=== PATIENT | female | born 1990 ===

== ENCOUNTER 2017-01-06 09:10 | Emergency (ER) | payer OTHER ==
[2017-01-06 09:23] VITALS: BP 101/66; PULSE 76; RESP 16; TEMP 97.8; O2SAT 98
--- NOTE | 2017-01-06 09:50 | C.PDOC ---
History Of Present Illness 26 y/o female presents to ED with complaints of both ears being clogged with decreased hearing for 5 days. Patient states left ear felt clogged first than right and hears sound distantly. Patient denies ear drainage, runny nose, cough , rash, fever, chills or any other complaints at this time. 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 Constitutional: Negative for: Fever, Chills ENT: Positive for: Ear Pain. Negative for: Ear Discharge, Nose Congestion Respiratory: Negative for: Cough Gastrointestinal: Negative for: Nausea, Vomiting, Diarrhea Skin: Negative for: Rash Physical Exam - Physical Exam Appears: Non-toxic, No Acute Distress Skin: Normal Color, Warm Head: Atraumatic, Normacephalic Eye(s): bilateral: Normal Inspection, PERRL, EOMI Ear(s): Bilateral: Other (Ear canals full of wax) Nose: Normal Oral Mucosa: Moist Throat: Normal, No Erythema Extremity: Normal ROM, Capillary Refill (<2 seconds) Neurological/Psych: Oriented x3 ED Course And Treatment O2 Sat by Pulse Oximetry: 98 (RA) Medical Decision Making Medical Decision Making: Patient was diagnosed with Cerumen Impaction Patient was discharged home and advised to follow up with ENT. Disposition Counseled Patient/Family Regarding: Diagnosis, Need For Followup - Disposition Referrals: [facility] [Outside] Clark Qureshi MD [Staff Provider] - Disposition: HOME/ ROUTINE Disposition Time: 09:49 Condition: STABLE Additional Instructions: Usted tiene cerumen impaction en ambos odos. Use agua oxygenada 3 veces al da en ambos odos. Seguimiento con ENT. Instructions: Cerumen Impaction (ED) - POA Present On Arrival: None - Clinical Impression Clinical Impression: Impacted cerumen - Scribe Statement The provider has reviewed the documentation as recorded by the Scribmarley Allen All medical record entries made by the Scribe were at my direction and personally dictated by me. I have reviewed the chart and agree that the record accurately reflects my personal performance of the history, physical exam, medical decision making, and the department course for this patient. I have also personally directed, reviewed, and agree with the discharge instructions and disposition.
== END 2017-01-06 10:08 | disposition home or self-care (01) ==
LOC: C.ER 09:10
DX: H61.23 Impacted cerumen, bilateral (principal)